=== PATIENT | male | born 1990 | race Caucasian/White ===

== ENCOUNTER 2023-08-09 17:16 | Inpatient (IN) | payer OTHER ==
[~2023-08-09] VITALS: Ht 175.3 cm; Wt 80.7 kg
[2023-08-09] MEDS ORDERED: MIDAZOLAM HCL 2 MG/2 ML VIAL IV ONE (17:30)
[2023-08-09] MEDS ORDERED: SODIUM CHLORIDE 0.9% 1,000 ML IV ONE (17:30)
[2023-08-09 18:00] LABS: HEMATOCRIT. 50.3 % (42.0-52.0); HEMOGLOBIN. 17.1 g/dL (14.0-18.0); MEAN CORPUSCULAR HEMOGLOBIN 29.3 pg (28.0-32.0); MEAN CORPUSCULAR VOLUME 86.1 fL (80.0-94.0); MEAN PLATELET VOLUME 9.5 fl (7.4-10.4); PLATELET 249 x1000/uL (130-400); RED BLOOD CELL COUNT 5.84 mill/uL (4.7-6.1); RED CELL DISTRIBUTION WIDTH 13.4 % (11.6-14.6); WHITE BLOOD COUNT 25.4 x1000/uL (4.5-11.0)
[2023-08-09 18:02] LABS: DIFFERENTIAL COMMENT 1
[2023-08-09 18:10] LABS: INR 1.1; PROTHROMBIN TIME 11.8 sec (9.6-11.0)
[2023-08-09 18:14] LABS: CHLORIDE 107 mEq/L (98-107); INDEX HEMOLYSI 1 (1-3); INDEX ICTERIC 2 (1-4); INDEX LIPEMIC 1 (1-3); POTASSIUM 3.6 mEq/L (3.5-5.1); SODIUM 140 mEq/L (136-145)
[2023-08-09] MEDS ORDERED: CEFTRIAXONE 1GM PREMIX 50 ML IV NR (18:30)
[2023-08-09] MEDS ORDERED: AZITHROMYCIN 500MG/250ML 250 ML IV NR (18:30)
[2023-08-09 18:40] LABS: PLATELET ESTIMATE NORMAL
[2023-08-09 18:44] LABS: ALANINE AMINOTRANSFERASE 73 IU/L (13-61); ALBUMIN 4.8 g/dL (3.4-5.0); ASPARTATE AMINOTRANSFERASE 232 IU/L (15-37); BILIRUBIN TOTAL 2.2 mg/dL (0.1-1.0); CALCIUM 9.5 mg/dL (8.5-10.1); CARBON DIOXIDE 23 mEq/L (21-32); CREATININE 2.5 mg/dL (0.6-1.3); GLUCOSE 123 mg/dL (70-105); PROTEIN TOTAL 9.2 g/dL (6.0-8.3); TROPONIN I HIGH SENSITIVITY 68 ng/L (<78); UREA NITROGEN BLOOD 24 mg/dL (7-21)
[2023-08-09 19:04] LABS: CREATINE KINASE 9084 IU/L (39-308)
[2023-08-09 19:39] LABS: BACTERIA URINE NONE SEEN; CLARITY URINE CLOUDY (CLEAR); COLOR URINE DARK YELLOW (YELLOW); GLUCOSE URINE NEGATIVE (NEGATIVE); KETONES URINE TRACE (NEGATIVE); LEUKOCYTE ESTERASE URINE NEGATIVE (NEGATIVE); NITRITE URINE NEGATIVE (NEGATIVE); OCCULT BLOOD URINE 3+ (NEGATIVE); PH URINE 5.5 (4.5-8.0); PROTEIN URINE 2+ (NEGATIVE); SPECIFIC GRAVITY URINE 1.023 (1.005-1.030); SQUAMOUS EPITHELIAL CELL URINE 1+ /lpf (RARE/1+); YEAST URINE NONE SEEN
[2023-08-10] MEDS ORDERED: ACETAMINOPHEN 325MG TABLET ONE (00:29)
[2023-08-10] MEDS ORDERED: CLONIDINE 0.1MG TABLET PO PRN (23:30)
[2023-08-10] MEDS ORDERED: ONDANSETRON HCL 4MG/2ML INJ IV PRN (23:30)
[2023-08-10] MEDS ORDERED: ACETAMINOPHEN 325MG TABLET PO PRN (23:30)
[2023-08-10] MEDS ORDERED: PANTOPRAZOLE SODIUM 40 MG/VIAL IV NR (23:30)
[2023-08-10] MEDS ORDERED: AZITHROMYCIN 500 MG in DEXT 5% WATER 250 ML IV SCH (23:45)
[2023-08-10] MEDS ORDERED: PIPERACILLIN/TAZ 3.375G PREMIX 50 ML IV NR (23:45)
[2023-08-11] MEDS ORDERED: PIPERACILLIN/TAZ 3.375G PREMIX 50 ML IV NR (05:30)
[2023-08-11] MEDS: SODIUM CHLORIDE 0.9% 1,000 ML IV SCH ×4 (06:43→22:37)
[2023-08-11 08:00] VITALS: BP 98/62; PULSE 87; RESP 20; TEMP 97.5
[2023-08-11 08:51] LABS: BASOPHILS % 0.3 % (0.0-2.0); EOSINOPHILS % 0.5 % (0.0-5.0); HEMATOCRIT. 39.8 % (42.0-52.0); HEMOGLOBIN. 13.7 g/dL (14.0-18.0); LYMPHOCYTES % 11.3 % (20.0-50.0); MEAN CORPUSCULAR HEMOGLOBIN 29.7 pg (28.0-32.0); MEAN CORPUSCULAR HGB CONC 34.5 g/dL (31.0-37.0); MEAN CORPUSCULAR VOLUME 86.2 fL (80.0-94.0); MEAN PLATELET VOLUME 9.8 fl (7.4-10.4); MONOCYTES % 7.9 % (2.0-8.0); PLATELET 181 x1000/uL (130-400); RED BLOOD CELL COUNT 4.62 mill/uL (4.7-6.1); RED CELL DISTRIBUTION WIDTH 13.4 % (11.6-14.6)
[2023-08-11 09:15] LABS: CREATINE KINASE MB FRACTION 4.5 ng/mL (0.5-3.6)
[2023-08-11 09:53] LABS: CHLORIDE 104 mEq/L (98-107); INDEX HEMOLYSI 1 (1-3); INDEX ICTERIC 1 (1-4); INDEX LIPEMIC 1 (1-3); SODIUM 135 mEq/L (136-145)
[2023-08-11 10:17] LABS: CALCIUM 8.6 mg/dL (8.5-10.1); CARBON DIOXIDE 28 mEq/L (21-32); CREATINE KINASE 1049 IU/L (39-308); GLUCOSE 89 mg/dL (70-105); UREA NITROGEN BLOOD 12 mg/dL (7-21)
[2023-08-11 11:06] VITALS: BP 98/62; PULSE 87; RESP 20; TEMP 97.5
[2023-08-11] MEDS: ENOXAPARIN 40MG/0.4ML SYR SUBCUT SCH (11:38)
[2023-08-11 12:00] VITALS: BP 102/53; PULSE 77; RESP 21; TEMP 97.8
[2023-08-11] MEDS: AZITHROMYCIN 500 MG in DEXT 5% WATER 250 ML IV SCH (12:15)
[2023-08-11] MEDS: PIPERACILLIN/TAZOBACTAM 3.375 G in DEXTROSE 5% WATER 50 ML IV SCH ×2 (13:38→21:04)
[2023-08-11] MEDS ORDERED: PIPERACILLIN/TAZ 3.375G PREMIX 50 ML IV SCH (14:00)
[2023-08-11 16:00] VITALS: BP 103/69; PULSE 69; RESP 20; TEMP 97.7
[2023-08-11 16:23] LABS: CREATINE KINASE MB FRACTION 4.6 ng/mL (0.5-3.6)
[2023-08-11 17:32] LABS: *AMPHETAMINES SCREEN URINE PRESUMTIVE POSITIVE (NEGATIVE); *BARBITURATES SCREEN URINE NEGATIVE (NEGATIVE); *BENZODIAZEPINES SCREEN URINE NEGATIVE (NEGATIVE); *COCAINE SCREEN URINE NEGATIVE (NEGATIVE); CANNABINOID URINE SCREEN NEGATIVE (NEGATIVE); ECSTASY MDMA SCREEN URINE NEGATIVE (NEGATIVE); OPIATES URINE SCREEN NEGATIVE (NEGATIVE); PHENCYCLIDINE URINE SCREEN NEGATIVE (NEGATIVE)
[2023-08-11 20:00] VITALS: BP 100/59; PULSE 87; RESP 20; TEMP 98
[2023-08-11 20:46] LABS: HEPATITIS B SURFACE ANTIGEN NEGATIVE
[2023-08-11 21:13] LABS: HEPATITIS C VIR.AB 0.07 INDEXVAL (0.00-0.80)
[2023-08-11 21:14] LABS: HEPATITIS B CORE AB IGM NEGATIVE
[2023-08-11 21:15] LABS: HEPATITIS A AB IGM NEGATIVE (NEGATIVE)
[2023-08-12] VITALS: BP 101/60; PULSE 77; RESP 18; TEMP 98
[2023-08-12 04:00] VITALS: BP 105/63; PULSE 78; RESP 20; TEMP 98.6
[2023-08-12] MEDS: PIPERACILLIN/TAZOBACTAM 3.375 G in DEXTROSE 5% WATER 50 ML IV SCH ×3 (05:07→21:59)
[2023-08-12 06:07] LABS: BASOPHILS % 0.3 % (0.0-2.0); EOSINOPHILS % 1.8 % (0.0-5.0); HEMATOCRIT. 35.1 % (42.0-52.0); HEMOGLOBIN. 12.4 g/dL (14.0-18.0); LYMPHOCYTES % 13.8 % (20.0-50.0); MEAN CORPUSCULAR HEMOGLOBIN 30.5 pg (28.0-32.0); MEAN CORPUSCULAR HGB CONC 35.2 g/dL (31.0-37.0); MEAN CORPUSCULAR VOLUME 86.7 fL (80.0-94.0); MEAN PLATELET VOLUME 10.1 fl (7.4-10.4); MONOCYTES % 7.8 % (2.0-8.0); NEUTROPHILS % 76.3 % (40.0-76.0); PLATELET 177 x1000/uL (130-400); RED BLOOD CELL COUNT 4.05 mill/uL (4.7-6.1); RED CELL DISTRIBUTION WIDTH 13.3 % (11.6-14.6); WHITE BLOOD COUNT 9.7 x1000/uL (4.5-11.0)
[2023-08-12] MEDS: SODIUM CHLORIDE 0.9% 1,000 ML IV SCH ×3 (06:30→22:02)
[2023-08-12 07:41] LABS: INDEX HEMOLYSI 1 (1-3); INDEX ICTERIC 1 (1-4); INDEX LIPEMIC 1 (1-3)
[2023-08-12 08:00] VITALS: BP_SYST 145; BP_SYST 148; BP_DIAS 78; BP_DIAS 88; PULSE 90; RESP 20; TEMP 97
[2023-08-12 08:02] LABS: ALANINE AMINOTRANSFERASE 53 IU/L (13-61); ALBUMIN 2.8 g/dL (3.4-5.0); ASPARTATE AMINOTRANSFERASE 71 IU/L (15-37); BILIRUBIN DIRECT 0.2 mg/dL (0.0-0.2); BILIRUBIN TOTAL 0.6 mg/dL (0.1-1.0); CALCIUM 8.3 mg/dL (8.5-10.1); CARBON DIOXIDE 25 mEq/L (21-32); CHLORIDE 109 mEq/L (98-107); CREATINE KINASE 868 IU/L (39-308); CREATININE 0.9 mg/dL (0.6-1.3); GLUCOSE 86 mg/dL (70-105); POTASSIUM 3.6 mEq/L (3.5-5.1); PROTEIN TOTAL 6.4 g/dL (6.0-8.3); SODIUM 140 mEq/L (136-145); UREA NITROGEN BLOOD 12 mg/dL (7-21)
[2023-08-12] MEDS: ENOXAPARIN 40MG/0.4ML SYR SUBCUT SCH (08:22)
[2023-08-12 12:00] VITALS: BP 100/58; PULSE 68; RESP 19; TEMP 97.9
[2023-08-12] MEDS: AZITHROMYCIN 500 MG in DEXT 5% WATER 250 ML IV SCH (12:46)
[2023-08-12 16:00] VITALS: BP 124/72; PULSE 72; RESP 20; TEMP 98.2
[2023-08-12 20:00] VITALS: BP 112/62; PULSE 70; RESP 18; TEMP 99.1
[2023-08-13] VITALS: BP 102/73; PULSE 60; RESP 18; TEMP 99.3
[2023-08-13 04:00] VITALS: BP 102/68; PULSE 81; RESP 18; TEMP 99.5
[2023-08-13] MEDS: PIPERACILLIN/TAZOBACTAM 3.375 G in DEXTROSE 5% WATER 50 ML IV SCH ×3 (05:14→23:56)
[2023-08-13 06:41] LABS: BASOPHILS % 0.3 % (0.0-2.0); EOSINOPHILS % 2.6 % (0.0-5.0); HEMATOCRIT. 36.9 % (42.0-52.0); HEMOGLOBIN. 12.7 g/dL (14.0-18.0); LYMPHOCYTES % 16.2 % (20.0-50.0); MEAN CORPUSCULAR HEMOGLOBIN 29.8 pg (28.0-32.0); MEAN CORPUSCULAR HGB CONC 34.5 g/dL (31.0-37.0); MEAN CORPUSCULAR VOLUME 86.2 fL (80.0-94.0); MEAN PLATELET VOLUME 10.1 fl (7.4-10.4); MONOCYTES % 8.9 % (2.0-8.0); PLATELET 214 x1000/uL (130-400); RED BLOOD CELL COUNT 4.28 mill/uL (4.7-6.1); RED CELL DISTRIBUTION WIDTH 13.3 % (11.6-14.6); WHITE BLOOD COUNT 8.3 x1000/uL (4.5-11.0)
[2023-08-13 07:20] LABS: CHLORIDE 107 mEq/L (98-107); INDEX HEMOLYSI 1 (1-3); INDEX ICTERIC 1 (1-4); INDEX LIPEMIC 1 (1-3); POTASSIUM 3.5 mEq/L (3.5-5.1); SODIUM 138 mEq/L (136-145)
[2023-08-13 07:32] LABS: CALCIUM 8.8 mg/dL (8.5-10.1); CARBON DIOXIDE 26 mEq/L (21-32); CREATININE 0.8 mg/dL (0.6-1.3); GLUCOSE 106 mg/dL (70-105); UREA NITROGEN BLOOD 11 mg/dL (7-21)
[2023-08-13 08:00] VITALS: BP 145/50; PULSE 71; RESP 18; TEMP 98.9
[2023-08-13] MEDS: ENOXAPARIN 40MG/0.4ML SYR SUBCUT SCH (08:20)
[2023-08-13] MEDS: SODIUM CHLORIDE 0.9% 1,000 ML IV SCH ×3 (08:20→23:56)
[2023-08-13] MEDS: AZITHROMYCIN 500 MG in DEXT 5% WATER 250 ML IV SCH (11:31)
[2023-08-13 12:00] VITALS: BP 104/64; PULSE 65; RESP 18; TEMP 97.7
[2023-08-13 16:00] VITALS: BP 119/73; PULSE 66; RESP 18; TEMP 97.7
[2023-08-13 20:00] VITALS: BP 106/70; PULSE 62; RESP 16; TEMP 97
[2023-08-14] VITALS: BP 99/67; PULSE 60; RESP 16; TEMP 97.4
[2023-08-14 04:00] VITALS: BP 116/77; PULSE 59; RESP 17; TEMP 97.3
[2023-08-14] MEDS: PIPERACILLIN/TAZOBACTAM 3.375 G in DEXTROSE 5% WATER 50 ML IV SCH ×3 (06:02→22:14)
[2023-08-14 08:00] VITALS: BP 100/59; PULSE 66; RESP 18; TEMP 97.9
[2023-08-14] MEDS: SODIUM CHLORIDE 0.9% 1,000 ML IV SCH ×3 (08:12→22:23)
[2023-08-14] MEDS: ENOXAPARIN 40MG/0.4ML SYR SUBCUT SCH (08:12)
[2023-08-14] MEDS: AZITHROMYCIN 500 MG TABLET PO SCH (11:22)
[2023-08-14 12:00] VITALS: BP 103/65; PULSE 62; RESP 18; TEMP 97.8
[2023-08-14] MEDS: RISPERIDONE 1MG TABLET PO SCH ×2 (13:49→22:14)
[2023-08-14 16:00] VITALS: BP 107/60; PULSE 79; RESP 18; TEMP 98
[2023-08-14 20:00] VITALS: BP 99/50; PULSE 71; RESP 18; TEMP 97.6
[2023-08-15] VITALS: BP 100/60; PULSE 92; RESP 18; TEMP 97
[2023-08-15 04:00] VITALS: BP 98/58; PULSE 55; RESP 20; TEMP 97.8
[2023-08-15] MEDS: PIPERACILLIN/TAZOBACTAM 3.375 G in DEXTROSE 5% WATER 50 ML IV SCH ×3 (05:49→21:16)
[2023-08-15] MEDS: SODIUM CHLORIDE 0.9% 1,000 ML IV SCH ×3 (07:30→23:24)
[2023-08-15] MEDS: ENOXAPARIN 40MG/0.4ML SYR SUBCUT SCH (09:05)
[2023-08-15] MEDS: RISPERIDONE 1MG TABLET PO SCH ×2 (09:06→20:17)
[2023-08-15] MEDS: AZITHROMYCIN 500 MG TABLET PO SCH (11:34)
[2023-08-15 16:00] VITALS: BP 101/67; PULSE 60; RESP 20; TEMP 98.1
[2023-08-16] MEDS: PIPERACILLIN/TAZOBACTAM 3.375 G in DEXTROSE 5% WATER 50 ML IV SCH ×2 (06:48→15:20)
[2023-08-16] MEDS: SODIUM CHLORIDE 0.9% 1,000 ML IV SCH (07:30)
[2023-08-16 08:00] VITALS: BP 107/69; PULSE 78; RESP 20; TEMP 97.5
[2023-08-16] MEDS: RISPERIDONE 1MG TABLET PO SCH (09:10)
[2023-08-16] MEDS: ENOXAPARIN 40MG/0.4ML SYR SUBCUT SCH (09:11)
[2023-08-16 12:00] VITALS: BP 112/55; PULSE 64; RESP 20; TEMP 98.3
[2023-08-16] MEDS ORDERED: RISP1 PO (14:56)
[2023-08-16 16:18] VITALS: BP 112/55; PULSE 64; TEMP 98.3; O2SAT 98
== END 2023-08-16 18:24 | disposition home or self-care (01) | DRG 720 ==
LOC: ER 17:16 → MICUSO 19:37 → 8WST 08-11 09:30
PROVIDERS: ADMIT Internal Medicine; ATTEND Internal Medicine
DX: A41.9 Sepsis, unspecified organism (principal); G92.8 Other toxic encephalopathy; N17.9 Acute kidney failure, unspecified; J18.9 Pneumonia, unspecified organism; M62.82 Rhabdomyolysis; F20.9 Schizophrenia, unspecified; N39.0 Urinary tract infection, site not specified; F32.A Depression, unspecified; F19.10 Other psychoactive substance abuse, uncomplicated
CPT/HCPCS: 36415; 71045; 76700; 80048; 80053; 80076; 80305; 81003; 82550; 82553; 82962; 84484; 85025; 86705; 86709; 86803; 87340; 93005; 93970; 97116; 97162; 99285; C9113; J0456; J0696; J1650; J2250; J2543; J7030; J7060